=== PATIENT | male | born 1990 | race Two or more races ===

== ENCOUNTER 2024-04-15 12:23 | Emergency (ER) | payer OTHER, SELFPAY ==
[2024-04-15 13:02] VITALS: BP 106/59; PULSE 66; RESP 16; TEMP 36.7; O2SAT 98; BMI 22.3
--- NOTE | 2024-04-15 13:08 | ED.GENADULT ---
HPI - General Adult General Chief complaint: Allergic Reaction Stated complaint: Allergic reaction Time Seen by Provider: 04/15/24 13:05 Source: patient, RN notes reviewed, old records reviewed and ophthalmic medical assistant Mode of arrival: ambulatory Limitations: language barrier History of Present Illness ED Provider: Ana [facility] narrative: 34-year-old male presents for evaluation of a rash. He reports he has had the rash on and off for several months. He reports the rash comes and goes all over his body but currently he has a small rash under his right eye, his left arm, his legs in his chest He reports that he does have sensitive skin. After the rash started he changed all of his soaps and lotions. He has been using Benadryl with minimal relief. He has also been using [id number] cream that has helped the itching with but has not help the rash itself. He believes he has ?dermatitis. ? He denies any medical issues He is not on any prescribed medications Denies any facial swelling, difficulty swallowing or breathing Related Data Previous Rx's ?Medication ?Instructions ?Recorded prednisone 10 mg tablets in a dose 10 mg PO DIRECTED #48 ea 04/15/24 pack Allergies Allergy/AdvReac Type Severity Reaction Status Date / Time aspirin Allergy Unknown Verified 04/15/24 13:10 Review of Systems Constitutional: Constitutional: Denies body ache(s), Denies chills and Denies fever(s) Cardiovascular: Cardiovascular: Denies chest pain PMFSH Social History Social History Do you have a plan to hurt others: No Plan Physical Exam ED Vital Signs: Vital Signs - 24 hr 04/15/24 13:02 Temperature 98.0 F Pulse Rate 66 Respiratory Rate 16 Blood Pressure 106/59 L Pulse Oximetry 98 Oxygen Delivery Method Room Air BMI result Body Mass Index 22.3 Const General: healthy appearing, comfortable, no acute distress, alert and awake Nutritional Appearance: well nourished Orientation/consciousness: patient oriented x3 HENMT Head: Yes normocephalic and Yes atraumatic Throat: Yes posterior oropharynx normal Eyes Eyelids: Yes eyelids normal Conjunctivae: conjunctivae normal Sclerae: sclerae normal Corneas: corneas normal Pupils: Equal, round and reactive pupils present EOM: EOMs intact bilaterally Neck Neck: Yes full ROM Resp Effort & Inspection: normal respiratory effort, able to speak in complete sentences, no audible wheezes and not labored Auscultation: clear to auscultation bilaterally Skin Other: Patient has faint erythema inferior to the right orbit, the chest, the left arm and lower legs. There are some scattered papules as well. No open wounds, no beefy red erythema. No pustules no obvious urticaria General skin exam: elasticity normal Neuro General: patient oriented x3 Cranial nerves: Yes Equal, round and reactive pupils present and Yes Bilaterally intact EOM present Cognition (Neuro): normal cognition Extrem Other: Moving all extremities well without any obvious deformities Medical Decision Making Medical Decision Making MDM Narrative: 34-year-old male presents for evaluation of a rash. This has been on and off for several weeks. He denies any known allergies. He has been treating with Benadryl with minimal relief. He appears to have a mild dermatitis we will treat with a prednisone taper. No concerning findings suggestive of anaphylaxis. Differential Diagnosis Differential Diagnoses: The differential diagnosis associated with the presentation includes Dermatitis Urticaria Acute rash Allergic reaction Discharge Plan Discharge Clinical Impression: Dermatitis Patient Disposition: Home, Self-Care Instructions: Dermatitis (ED) Additional Instructions: Take the prednisone as directed You may continue using Benadryl as needed for itching and rash Follow-up with your primary doctor Return for new or worsening symptoms Prescriptions: New prednisone 10 mg tablets,dose pack 10 mg PO DIRECTED Qty: 48 0RF Rx Instructions: see taper instructions
[2024-04-15 13:26] VITALS: BP 0/0; PULSE 0; RESP 0; TEMP -17.7; TEMP 0; O2SAT 0
== END 2024-04-15 13:27 | disposition home or self-care (01) ==
PROVIDERS: Emergency Provider Emergency Medicine
DX: L30.9 Dermatitis, unspecified (principal); R21 Rash and other nonspecific skin eruption
CPT/HCPCS: 99282; 99283